=== PATIENT | female | born 1990 | race Asian ===

== ENCOUNTER 2022-10-28 14:13 | Emergency (ER) | payer MEDICAID ==
[~2022-10-28] VITALS: Ht 160 cm; Wt 54.9 kg
[2022-10-28 14:55] VITALS: BP 104/44
--- NOTE | 2022-10-28 15:04 | NUR ---
PT AMB TO BED 8
--- NOTE | 2022-10-28 15:08 | NUR ---
Lab at bedside.
--- NOTE | 2022-10-28 15:11 | NUR ---
Ultrasound at bedside.
[2022-10-28 15:25] LABS: BASOPHILS % (AUTO) 0.4 % (0.0-2.0); EOSINOPHILS # (AUTO) 0.1 K/uL (0-0.4); EOSINOPHILS % (AUTO) 0.6 % (0.0-4.0); HEMATOCRIT 38.4 % (36-48); HEMOGLOBIN 12.9 g/dL (12.0-16.0); LYMPHOCYTES # (AUTO) 1.9 K/uL (2.5-16.5); LYMPHOCYTES % (AUTO) 19.2 % (20.5-51.1); MEAN CORPUSCULAR HEMOGLOBIN 31 pg (27-31); MEAN CORPUSCULAR HGB CONC 34 g/dL (33-37); MEAN CORPUSCULAR VOLUME 91.1 fL (80-94); MONOCYTES # (AUTO) 0.4 K/uL (0.8-1.0); MONOCYTES % (AUTO) 4.5 % (1.7-9.3); NEUTROPHILS # (AUTO) 7.3 K/uL (1.8-7.7); NEUTROPHILS % (AUTO) 75.3 % (42.2-75.2); PLATELET COUNT (AUTO) 209 K/uL (140-450); RED BLOOD CELL COUNT(AUTO) 4.21 MIL/uL (4.20-5.40); RED CELL DISTRIBUTION WIDTH 12.5 % (11.6-13.7); WHITE BLOOD COUNT (AUTO) 9.7 K/uL (4.8-10.8)
[2022-10-28 15:46] LABS: CARBON DIOXIDE 25.3 mmol/L (21-32); CREATININE 0.6 mg/dL (0.6-1.3); POTASSIUM 3.3 mmol/L (3.5-5.1); TOTAL BILIRUBIN 0.3 mg/dL (0.0-1.0)
--- NOTE | 2022-10-28 15:52 | NUR ---
Patient ambulated to restroom.
--- NOTE | 2022-10-28 15:57 | NUR ---
32 y/o female bib for c/o vaginal bleeding x 2.5 hours ago. Patient states she is actively having vaginal bleeding. Patient reports low back and pelvic pain. Denies any fevers or chills. LMP 08/17/22. [id number] Paient has not been seen by OBGYN yet. [facility] [employer] Visual [employer] Director #: [id number] Medical History: Denies NKDA
--- NOTE | 2022-10-28 16:08 | NUR ---
Dr. Burgos evaluating patient at bedside.
[2022-10-28 16:11] LABS: APPEARANCE,URINE CLEAR (CLEAR); BILIRUBIN,URINE NEGATIVE (NEGATIVE); BLOOD, URINE 2+ (NEGATIVE); COLOR,URINE YELLOW (YELLOW); LEUKOCYTE ESTERASE ,URINE NEGATIVE (NEGATIVE); NITRITE, URINE NEGATIVE (NEGATIVE); UGLUCOSE NEGATIVE (NEGATIVE)
[2022-10-28 16:31] LABS: RBC,URINE >100 /HPF (0-5); WBC,URINE NONE SEEN /HPF (0-5)
[2022-10-28] MEDS ORDERED: NITR100C7 PO (16:40)
[2022-10-28 16:54] VITALS: BP 110/70
--- NOTE | 2022-10-28 16:54 | NUR ---
Patient discharged with v/s stable. Written and verbal after care instructions given. Patient alert, oriented and verbalized understanding of instructions. Ambulatory with steady gait. All questions addressed prior to discharge. ID band removed. Patient advised to follow up with PMD. Rx of Macrobid given. Opportunity to ask questions provided and answered. COPY OF LABS AND ULTRASOUND GIVEN TO PATIENT.
--- NOTE | 2022-10-28 16:55 | NUR ---
The patient's care was reviewed and supervised by Camille Briscoe, RN, RN.
--- NOTE | 2022-10-28 16:56 | NUR ---
The patient's care was reviewed and supervised by Camille Briscoe, RN, RN.
== END 2022-10-28 16:54 | disposition home or self-care (01) ==
LOC: MED 14:13
DX: O20.0 Threatened abortion (principal); O23.91 Unspecified genitourinary tract infection in pregnancy, first trimester; R82.71 Bacteriuria; Z3A.12 12 weeks gestation of pregnancy; Z79.2 Long term (current) use of antibiotics
CPT/HCPCS: 36415; 76801; 80053; 81001; 81025; 84702; 85025; 86886; 86900; 86901; 99284; Q0092